=== PATIENT | female | born 1990 | race Caucasian/White ===

== ENCOUNTER 2022-04-04 17:16 | Emergency (ER) | payer OTHER, SELFPAY ==
--- NOTE | 2022-04-04 17:17 | CTR_ITS ---
PROCEDURE INFORMATION: Exam: CT Head Without Contrast Exam date and time: 04/04/2022 5:19 PM Age: 31 years old Clinical indication: Stroke-like symptoms; Left facial droop; Lt upper extremity weakness; Additional info: Left sided weakness TECHNIQUE: Imaging protocol: Computed tomography of the head without contrast. Radiation optimization: All CT scans at this facility use at least one of these dose optimization techniques: automated exposure control; mA and/or kV adjustment per patient size (includes targeted exams where dose is matched to clinical indication); or iterative reconstruction. Other technique: STROKE PROTOCOL was implemented. COMPARISON: No relevant prior studies available. RADIATION DOSE METRICS: Total DLP (mGy-cm): 1016.98 FINDINGS: Brain: Normal. No hemorrhage. Unremarkable white matter. No mass effect. Cerebral ventricles: No ventriculomegaly. Paranasal sinuses: Visualized sinuses are unremarkable. No fluid levels. Mastoid air cells: Visualized mastoid air cells are well aerated. Bones/joints: Unremarkable. No acute fracture. Soft tissues: Unremarkable. CT/CT head wo con* [id number] IMPRESSION: No acute intracranial abnormality. ASSESSMENT: ASPECTS ([place] Stroke Program Early CT Score) is 10.
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
[2022-04-04 17:49] VITALS: BP 145/88; PULSE 98; RESP 21; TEMP 36.9; O2SAT 98; BMI 35.2
[2022-04-04 17:58] LABS: Basophils % 0.4 %; Eosinophils % 0.8 %; Hematocrit 40.4 % (37.0-47.0); Hemoglobin 13.4 g/dL (11.5-15.3); Lymphocytes # 1.9 10^3/uL (0.8-4.8); Lymphocytes % 35.9 %; Mean Corpuscular HGB Conc 33.2 g/dL (30.0-36.0); Mean Corpuscular Hemoglobin 30.4 pg (28.0-34.0); Mean Corpuscular Volume 91.6 fl (81-99); Mean Platelet Volume 10.4 fL (7.4-10.4); Monocytes # 0.4 10^3/uL (0.2-0.9); Monocytes % 7.9 %; Neutrophils # 2.92 10^3/uL (1.8-7.7); Neutrophils % 54.8 %; Nucleated Red Blood Cells % 0 %; Platelet Count 253 10^3/cmm (130-400); Red Blood Count 4.41 10^6/uL (4.1-5.3); Red Cell Distribution Width 12.1 % (12.1-15.1); White Blood Count 5.3 10^3/uL (4.0-10.0)
[2022-04-04 18:25] VITALS: BP 128/89; PULSE 99; RESP 18; O2SAT 98
--- NOTE | 2022-04-04 18:26 | ECG_ITS ---
[facility] Test Date: 2022-04-04 Pat Name: Melissa Luciano Department: Room: Gender: Female Seat Trimmer: : 1990 Requested By: Lázaro Butterfield Order Number: [id number] Sherwin MD: Yulisa Mcgowan M.D. Measurements Intervals [place] Rate: 100 P: 68 CO: 126 QRS: 54 QRSD: 104 T: 42 QT: 348 QTc: 449 Interpretive Statements SINUS TACHYCARDIA ABNORMAL RHYTHM ECG No previous ECG available for comparison Electronically Signed On 04-04-2022 19:14:40 CDT by Yulisa Mcgowan M.D. [email or web address]
[2022-04-04 18:38] LABS: Alanine Aminotransferase 10 U/L (0-33); Albumin Level 4.2 g/dL (3.5-5.2); Alkaline Phosphatase 68 IU/L (35-105); Anion Gap 15.9 (5-19); Aspartate Amino Transferase 13 U/L (0-32); Blood Urea Nitrogen 13 mg/dL (6-20); Calcium 8.9 mg/dL (8.5-10.5); Carbon Dioxide 21 mmol/L (22-29); Chloride 109 mmol/L (98-107); Globulin 2.6 g/dL (1.3-4.6); Glomerular Filtration Rate 97.6 mL/min (90-130); Glucose 95 mg/dL (65-115); Osmolality Calculated 294 mOsm/kg (285-295); Potassium 3.9 mmol/L (3.5-5.1); Sodium 142 mmol/L (136-145); Total Bilirubin 0.2 mg/dL (0.15-1.2); Total Protein 6.8 g/dL (6.6-8.7)
[2022-04-04 18:56] VITALS: BP 153/100; PULSE 101; RESP 21; O2SAT 90
[2022-04-04 19:43] LABS: Add Urine Microscopic? YES; Bilirubin Urine Neg (Negative); Blood Urine 2+ (Negative); Glucose Urine UA Norm (Normal); Ketones Urine Negative (Negative); Leukocyte Esterase Urine Negative (Negative); Nitrate Urine Negative (Negative); Protein Urine Neg (Negative); Urine Appearance Clear (CLEAR); Urine Color Yellow (Yellow); Urobilinogen Urine Neg (Negative); pH Urine 5 (5-7)
[2022-04-04 19:50] LABS: Add Urine Culture? No; Bacteria Urine 1+ /hpf; Mucus Urine 1+ /hpf; RBC Urine 0-4 /hpf (0-2); Squamous Epithelial Cell Urine 0-4 /hpf (0-5); WBC Urine 0-4 /hpf (0-5)
== END 2022-04-04 19:58 | disposition home or self-care (01) ==
PROVIDERS: Family Medicine; Emergency Provider Emergency Medicine
DX: Z04.1 Encounter for examination and observation following transport accident (principal); R20.2 Paresthesia of skin; Z85.6 Personal history of leukemia; V89.2XXA Person injured in unspecified motor-vehicle accident, traffic, initial encounter
CPT/HCPCS: 70450; 80053; 81001; 85025; 93005; 99284

== ENCOUNTER 2023-01-19 14:31 | Emergency (ER) | payer OTHER, SELFPAY ==
[2023-01-19 14:34] VITALS: BP 118/79; PULSE 87; RESP 12; TEMP 36.7; O2SAT 99; BMI 35.2
--- NOTE | 2023-01-19 15:51 | CTR_ITS ---
PROCEDURE INFORMATION: Exam: CT Head Without Contrast Exam date and time: 01/19/2023 4:02 PM Age: 32 years old Clinical indication: Pain; Additional info: Headache TECHNIQUE: Imaging protocol: Computed tomography of the head without contrast. REPORTING DATA: Count of CT and Cardiac NM exams in prior 12 months: This patient has received [address] and 0 known cardiac nuclear medicine studies in the 12 months prior to the current study. COMPARISON: CT head wo con* [id number] 04/04/2022 5:19 PM RADIATION DOSE METRICS: Total DLP (mGy-cm): 1052 FINDINGS: Brain: No hemorrhage. No edema. 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 No mass effect. Cerebral ventricles: No ventriculomegaly. Paranasal sinuses: Visualized sinuses are unremarkable. No fluid levels. Mastoid air cells: Visualized mastoid air cells are well aerated. Bones/joints: Unremarkable. No acute fracture. Soft tissues: Unremarkable. CT/CT head wo con* [id number] IMPRESSION: 1. No acute intracranial abnormality. 2. 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
[2023-01-19 16:03] LABS: Basophils % 0.5 %; Eosinophils # 0.1 10^3/uL (0.0-0.8); Eosinophils % 1.6 %; Hematocrit 36.3 % (37.0-47.0); Hemoglobin 11.6 g/dL (11.5-15.3); Lymphocytes # 2.3 10^3/uL (0.8-4.8); Lymphocytes % 31.4 %; Mean Corpuscular Hemoglobin 29.4 pg (28.0-34.0); Mean Corpuscular Volume 92.1 fl (81-99); Mean Platelet Volume 10.8 fL (7.4-10.4); Monocytes # 0.6 10^3/uL (0.2-0.9); Monocytes % 7.5 %; Neutrophils # 4.37 10^3/uL (1.8-7.7); Neutrophils % 58.7 %; Nucleated Red Blood Cells % 0 %; Platelet Count 239 10^3/cmm (130-400); Red Blood Count 3.94 10^6/uL (4.1-5.3); Red Cell Distribution Width 13.2 % (12.1-15.1); White Blood Count 7.5 10^3/uL (4.0-10.0)
[2023-01-19 16:09] VITALS: BP 120/72; PULSE 85; O2SAT 98
--- NOTE | 2023-01-19 16:20 | W.ED.AMS ---
HPI - Altered Mental Status General: Chief Complaint: Altered Mental Status Stated Complaint: head pain, Face tingling, started chemo Time Seen by Provider: 01/19/23 15:10 History of Present Illness: Patient presents to the ER with complaints of facial, bilateral upper and lower extremity numbness and tingling. Patient reports this started this morning. Patient does not have any facial droop speech is clear. Patient has had a headache for the last approximately 45 days. Nothing that the patient has done is change her headache. Patient does have a history of migraine headaches. Patient also had a stroke earlier this year. Onset (ago): day(s) (Numbness and tingling started today headache started approximately 45 days ago) Severity: mild Consistency of symptoms: Constant Associated symptoms: Reports no associated symptoms; Deny depression Review of Systems General: Reports: 10 or more systems reviewed and unremarkable except in HPI and below Const: Denies: fever(s) or chills Eyes: Denies: change in vision or photophobia ENMT: Denies: throat pain or odynophagia Card: Denies: chest pain, palpitations or irregular heart rhythm Resp: Denies: dyspnea, productive cough or non-productive cough GI: Denies: abdominal pain, nausea, vomiting or diarrhea : Denies: flank pain, difficulty voiding or dysuria Musc: Denies: neck pain or extremity pain Skin/Breast: Denies: rash, pruritus or erythema Neuro: Reports: headache(s) and numbness in extremities (And tingling) Psych: Denies: anxiety, depression or mood swings PFS ED PFSH: Medical History CML (chronic myelocytic leukemia) Social History Smoking and tobacco status: never smoked Alcohol intake: never Physical Exam Const: COMMON NORMALS: no acute distress, average body habitus, patient oriented x3, no limitations, healthy appearing, alert and well nourished HENMT: COMMON NORMALS: normocephalic, atraumatic, hearing grossly normal bilaterally, external ears normal, Normal external nose present and moist oral mucous membranes HEAD & SCALP: normocephalic and atraumatic NOSE: Normal external nose present EXTERNAL EAR: Yes external ears normal Eye: COMMON NORMALS: Equal, round and reactive pupils present, EOMs intact bilaterally, conjunctivae normal and no scleral icterus CONJUNCTIVA: Yes conjunctivae normal PUPIL: Yes Equal, round and reactive pupils present Neck/C-Spine: COMMON NORMALS: full ROM, no lymphadenopathy, supple, no meningeal signs, no JVD and Thyroid normal THYROID: Thyroid normal Lymph: LYMPHATIC: no lymphadenopathy noted Chest: COMMONS NORMALS: normal inspection of the chest and normal palpation of entire chest wall Resp: COMMON NORMALS: normal respiratory effort, No retractions, No use of accessory muscles and clear to auscultation bilaterally AUSCULTATION: clear to auscultation bilaterally Cardio: COMMON NORMALS: no JVD, regular rate, regular rhythm, S1 normal heart sound present and S2 normal heart sound present RATE: regular rate RHYTHM: regular rhythm HEART SOUNDS: S1 normal heart sound present and S2 normal heart sound present GI: COMMON NORMALS: Normal to inspection, nondistended, normoactive bowel sounds present, Soft to palpation, non-tender, No hepatosplenomegaly present and no masses PALPATION: Yes Soft to palpation and Yes No hepatosplenomegaly present : COMMON NORMALS: Yes no CVA tenderness BLADDER/KIDNEY EXAM: Yes no CVA tenderness Back/Pelvis: COMMON NORMALS: no CVA tenderness Neuro: COMMON NORMALS: patient oriented x3, CN's II-XII intact bilaterally, moves all extremities, no focal motor deficits and no sensory deficits noted SENSORIUM/ORIENTATION: Yes alert MENINGEAL SIGNS: Yes no meningeal signs Psych: COMMON NORMALS: mental status grossly normal, Normal thought process present, cooperative, normal affect, speech normal and activity/motor behavior normal SPEECH: Yes normal speech THOUGHT PROCESS: Normal thought process present Course Vital Signs: Vital signs: Vital Signs Temperature 98.0 F 01/19/23 14:34 Pulse Rate 76 01/19/23 17:30 Respiratory Rate 12 01/19/23 14:34 Blood Pressure 118/79 01/19/23 17:30 Pulse Oximetry 95 01/19/23 17:30 Oxygen Delivery Me thod Room Air 01/19/23 17:30 MDM - Altered Mental Status Medical Decision Making Patient presents to the ER complaining of paresthesias and a headache. Patient does have a history of a stroke in the past. Patient has tried multiple [id number] medications to control her headache and none of them has helped. Lab work was obtained as well as a head CT all of which was essentially benign. Patient was given Imitrex 6 mg subcu and will be discharged home patient to follow-up with her PCP/neurologist/oncologist for further work-up and evaluation. Differential Diagnosis Unlikely alcoholic intoxication, altered mental status, delirium, dementia, hypoglycemia, hyponatremia, subarachnoid hemorrhage or sepsis Medical Records I reviewed the patient's medical records. Lab Data I reviewed the patient's lab results. 01/19/23 15:13 01/19/23 15:[address] 01/19/23 15:51 IMPRESSION: 1. No acute intracranial abnormality. 2. 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 Laboratory Results WBC 7.5 10^3/uL (4.0-10.0) 01/19/23 15:13 RBC 3.94 10^6/uL (4.1-5.3) L 01/19/23 15:13 Hgb 11.6 g/dL (11.5-15.3) 01/19/23 15:13 Hct 36.3 % (37.0-47.0) L 01/19/23 15:13 MCV 92.1 fl (81-99) 01/19/23 15:13 MCH 29.4 pg (28.0-34.0) 01/19/23 15:13 MCHC 32.0 g/dL (30.0-36.0) 01/19/23 15:13 RDW 13.2 % (12.1-15.1) 01/19/23 15:13 Plt Count 239 10^3/cmm (130-400) 01/19/23 15:13 MPV 10.8 fL (7.4-10.4) H 01/19/23 15:13 Neut % (Auto) 58.7 % 01/19/23 15:13 Lymph % (Auto) 31.4 % 01/19/23 15:13 Giles % (Auto) 7.5 % 01/19/23 15:13 Eos % (Auto) 1.6 % 01/19/23 15:13 Baso % (Auto) 0.5 % 01/19/23 15:13 Neut # (Auto) 4.37 10^3/uL (1.8-7.7) 01/19/23 15:13 Lymph # (Auto) 2.3 10^3/uL (0.8-4.8) 01/19/23 15:13 Giles # (Auto) 0.6 10^3/uL (0.2-0.9) 01/19/23 15:13 Eos # (Auto) 0.1 10^3/uL (0.0-0.8) 01/19/23 15:13 Baso # (Auto) 0.0 10^3/uL (0.0-0.1) 01/19/23 15:13 Nucleated RBC % (auto) 0 % 01/19/23 15:13 Nucleated RBCs # 0.0 /100WBC 01/19/23 15:13 PT 13.20 SECONDS (12.1-14.9) 01/19/23 15:13 INR 0.97 (0.8-1.2) 01/19/23 15:13 Sodium 140 mmol/L (136-145) 01/19/23 15:13 Potassium 3.8 mmol/L (3.5-5.1) 01/19/23 15:13 Chloride 109 mmol/L (98-107) H 01/19/23 15:13 Carbon Dioxide 22 mmol/L (22-29) 01/19/23 15:13 Anion Gap 12.8 (5-19) 01/19/23 15:13 BUN 14 mg/dL (6-20) 01/19/23 15:13 Creatinine 0.9 mg/dL (0.5-0.9) 01/19/23 15:13 GFR Calculation 72.6 mL/min (90-130) L 01/19/23 15:13 Glucose 85 mg/dL (65-115) 01/19/23 15:13 Calculated Osmolality 290 mOsm/kg (285-295) 01/19/23 15:13 Calcium 8.9 mg/dL (8.5-10.5) 01/19/23 15:13 Total Bilirubin 0.2 mg/dL (0.15-1.2) 01/19/23 15:13 AST 14 U/L (0-32) 01/19/23 15:13 ALT 14 U/L (0-33) 01/19/23 15:13 Alkaline Phosphatase 98 U/L (35-105) 01/19/23 15:13 C-Reactive Protein 3.0 mg/L (0.0-4.9) 01/19/23 15:13 Total Protein 6.9 g/dL (6.6-8.7) 01/19/23 15:13 Albumin 4.4 g/dL (3.5-5.2) 01/19/23 15:13 Globulin 2.5 g/dL (1.3-4.6) 01/19/23 15:13 Discharge Plan Discharge Patient Disposition: Home Clinical Impression: Paresthesias Migraine Qualifiers: Migraine type: unspecified Status migrainosus presence: without status migrainosus Intractability: not intractable Qualified Code(s): G43.909 - Migraine, unspecified, not intractable, without status migrainosus Condition: Stable Prescriptions: No Action Flexeril 10 mg Tablet 10 mg PO DAILY PRN (Reason: Muscle Spasm) Lipitor 80 mg Tablet 80 mg PO BEDTIME Zyrtec 10 mg Tablet 10 mg PO BEDTIME valacyclovir 1 gram Tablet 1,000 mg PO BID PRN (Reason: unknown) Diamox 250 mg Tablet 250 mg PO BID Aspir-81 81 mg Tablet,Delayed Release (Dr/Ec) 81 mg PO BEDTIME Singulair 10 mg Tablet 10 mg PO BEDTIME dicyclomine 10 mg Capsule 10 mg PO QID PRN (Reason: Abdominal Discomfort) Excedrin Migraine 250-250-65 mg Tablet 2 tab PO BID PRN (Reason: Migraine Headache) bosutinib 100 mg Tablet 200 mg PO BEDTIME levonorgestrel 20.4 mcg/24 hrs (8 yrs) 52 mg Intrauterine Device See Rx Instructions .ROUTE .COMPLEX Rx Instructions: intrauterinely as directed Discharge Orders: Discharge ED (Routine); Ordered 01/19/23 Ordered By: gJ Granger Patient Instructions: Migraine Headache (ED), Paresthesia (ED) Activity Restrictions/Additional Instructions: Please follow-up with your family doctor for further evaluation and treatment. Please return to the ER if your symptomatology changes. Coding Level of Care Code ED Supervisor Refining for Alex Elena
[2023-01-19 16:30] LABS: INR 0.97 (0.8-1.2)
[2023-01-19 16:37] LABS: Alanine Aminotransferase 14 U/L (0-33); Albumin Level 4.4 g/dL (3.5-5.2); Alkaline Phosphatase 98 U/L (35-105); Anion Gap 12.8 (5-19); Aspartate Amino Transferase 14 U/L (0-32); Blood Urea Nitrogen 14 mg/dL (6-20); Calcium 8.9 mg/dL (8.5-10.5); Carbon Dioxide 22 mmol/L (22-29); Chloride 109 mmol/L (98-107); Creatinine Clr Calc Pharmacy 110.1929; Globulin 2.5 g/dL (1.3-4.6); Glomerular Filtration Rate 72.6 mL/min (90-130); Glucose 85 mg/dL (65-115); Osmolality Calculated 290 mOsm/kg (285-295); Potassium 3.8 mmol/L (3.5-5.1); Sodium 140 mmol/L (136-145); Total Bilirubin 0.2 mg/dL (0.15-1.2); Total Protein 6.9 g/dL (6.6-8.7)
[2023-01-19 17:00] VITALS: BP 116/68; PULSE 77; O2SAT 99
[2023-01-19 17:30] VITALS: BP 118/79; PULSE 76; O2SAT 95
[2023-01-19] MEDS: SUMAtriptan 6 mg/0.5 mL SDV SUBCUT (17:32)
[2023-01-19 18:51] VITALS: BP 124/70; PULSE 84; O2SAT 100
[2023-01-19 19:07] LABS: Add Urine Microscopic? YES; Bilirubin Urine Neg (Negative); Blood Urine Neg (Negative); Glucose Urine UA Norm (Normal); Ketones Urine Negative (Negative); Leukocyte Esterase Urine Negative (Negative); Nitrate Urine Negative (Negative); Protein Urine Neg (Negative); Specific Gravity, Urine 1.015 (1.005-1.030); Squamous Epithelial Cell Urine 0-4 /hpf (0-5); Sulfosalicylic Acid Urine Negative (Negative); Urine Color Yellow (Yellow); Urobilinogen Urine Norm (Negative); WBC Urine 0-4 /hpf (0-5); pH Urine 9 (5-7)
[2023-01-19 19:08] LABS: Add Urine Culture? No; Amorphous Sediment Urine 3+ /hpf; Bacteria Urine TRACE /hpf
--- NOTE | 2023-01-28 10:11 | DCPLANNER ---
TCM called patient due to no primary care physician - no answer at this time.
== END 2023-01-19 18:52 | disposition home or self-care (01) ==
PROVIDERS: Emergency Provider Emergency Medicine
DX: R20.2 Paresthesia of skin (principal); G43.909 Migraine, unspecified, not intractable, without status migrainosus; Z79.82 Long term (current) use of aspirin; Z85.6 Personal history of leukemia
CPT/HCPCS: 70450; 80053; 81001; 85025; 85610; 86140; 96372; 99284; J3030